=== PATIENT | female | born 1955 | race Caucasian/White ===

== ENCOUNTER 2022-08-04 13:52 | Outpatient (CLI) | payer MEDICARE, SELFPAY ==
--- NOTE | 2022-08-04 14:00 | CRLHL7_ITS ---
For Patients: As a result of the Century Cures Act, medical imaging exams and procedure reports are released immediately into your electronic medical record. You may view this report before your referring provider. If you have questions, please contact your health care provider. BILATERAL SCREENING MAMMOGRAM WITH COMPUTER-AIDED DETECTION AND TOMOSYNTHESIS TECHNIQUE: CC and MLO views were obtained. These mammographic images have been obtained using full-field digital technique. These mammographic images were interpreted with the benefit of computer-aided detection. Breast Tomosynthesis was used in this interpretation. COMPARISON FILM: 05/25/21, 05/22/20, 05/13/19. FINDINGS: The breasts are heterogeneously dense, which may obscure small masses IMPRESSION: There is no radiographic evidence for malignancy. ASSESSMENT: BI-RADS Category 1: Negative RECOMMENDATION: Routine screening mammogram in 1 year. A lay language report of this examination will be provided to the patient. Naeem Loomis M.D. Diagnostic Radiologist [email or web address] DORIAN/Dictated by: Naeem Loomis MD @ 08/05/2022 8:37:00 AM (Electronically Signed)
== END 2022-08-04 13:53 | disposition home or self-care (01) ==
LOC: MAMMO 13:52
PROVIDERS: PCP Internal Medicine; Visit Provider Internal Medicine
DX: Z12.31 Encounter for screening mammogram for malignant neoplasm of breast (principal); R92.2 Inconclusive mammogram
CPT/HCPCS: 77063; 77067

== ENCOUNTER 2023-02-02 08:15 | Outpatient (RCR) | payer MEDICARE, SELFPAY | END 2023-03-20 11:43 | disposition home or self-care (01) | PROVIDERS: PCP Internal Medicine; Visit Provider Physician Assistant | DX: H81.391 Other peripheral vertigo, right ear (principal); H90.3 Sensorineural hearing loss, bilateral; M54.2 Cervicalgia; Z51.89 Encounter for other specified aftercare | CPT/HCPCS: 97110; 97140; 97162 ==

== ENCOUNTER 2023-06-05 10:00 | Outpatient (RCR) | payer MEDICARE, SELFPAY ==
--- NOTE | 2023-04-13 12:48 | PT.OPEX ---
PT [facility] [place] [facility] PT [facility] Eval Start: 04/12/23 16:45 Freq: Status: Active Protocol: Document 04/12/23 16:45 NENA (Rec: 04/12/23 16:46 NENA [id number]) E-signed By Ravi Warner DPT, MS Physical Therapy Outpatient Evaluation Insurance Information Recert Due Date 07/11/23 Insurance Name Medicare B,Blue Cross/Blue Shield Medical Diagnosis Dizziness and giddiness Treating Diagnosis R BPPV, imbalance, sensory disorganization Subjective Subjective Patient presents to PT with c/ o acute reoccurrence of positional vertigo of insidious origin ~2-3 weeks ago upon waking. Describes sxs as the room spinning with rolling to R, looking up and down, and supine to sit Agnes reports having an episode of vertigo about 2 weeks ago. She has had vertigo many times, starting about 10-12 years ago . The first time it happened she thought she was having a stroke. This episode has been mild compared to that. Meclizine has helped. Symptoms caused by any quick/sudden head movements but especially with fwd bending. PT in January was helpful resulting in resolution of sxs until this month. 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 Assessment Assessment/Impression Testing revealed signs and symptoms consistent with R posterior canalithiasis BPPV. Following cannalith repositioning maneuver x 2 she presented as resolved with re -testing. Sensory disorganization with balance testing consistent with peripheral vestibular dysfunction. All other neurological testing normal. She is a mild falls risk based on her score on the 4-item Dynamic Gait Index testing. Recommended pt avoid sustained flex or ext head positions over the next 48 hours. She will benefit from continued skilled PT intervention to address these limitations. Primary Functional Limitations R, lying on R side, looking up , fwd bending, supine<>sit. Plan of Care Rehabilitation Potential Excellent Physical Therapy Goals Therapy goals to be completed in 10 weeks: 1. Patient will display resolution of R posterior canalithiasis BPPV symptoms for >5 consecutive days to improve safety with household cleaning activities. 2. Pt will displays improved balance on compliant surfaces with e/c to improve safety walking in the dark. 3. Pt will report >75% improvement on DHI questionnaire to improve tolerance to daily activities. 4. Patient will display improved 4-item DGI testing > /12 to decrease falls risk with dynamic gait tasks. Coordination/Communication With Referral Source Treatment Plan/Direct Interventions Canalith Repositioning, Neuromuscular Re-ed,Self-Care/ Home Management Frequency/Duration 1x per week for as needed for at least 6-10 visits. Patient Will Be Discharged From Therapy Completion of LTG(s),Skills Plateau,Independent w/HEP, Independently Progressing Evaluation Billing Untimed Code Treatment Minutes 24 Complexity Moderate Certification Information Initial Certification Date 04/12/23 Ending Certification Date 07/11/23 Provider Signature Shows Agreement With POC & Medical Necessity Physician Signature & Date Requested Please Sign/Date Here Physician Comment/Change : Physician NPI Number #
== END 2023-10-03 23:59 | disposition home or self-care (01) ==
PROVIDERS: PCP Internal Medicine; Visit Provider Nurse Practitioner Family
DX: R42 Dizziness and giddiness (principal); Z51.89 Encounter for other specified aftercare
CPT/HCPCS: 95992; 97162; 97535

== ENCOUNTER 2023-08-02 09:55 | Outpatient (CLI) | payer MEDICARE, SELFPAY ==
--- NOTE | 2023-08-02 10:15 | MR_ITS ---
[facility] [address] [facility] [address] Phone:?[phone] Fax:?[phone] Referring Physician Information: Robin Todd M.D. [address] [facility] [address] Phone:?[phone] Fax:?[phone] Patient:Margareth Nava D.O.B:?1955 Sex:?Female Phone:?[phone] [facility] MRN:?[id number] Exam Date:?08/02/2023 EXAM: MRI of the LEFT KNEE, without contrast CLINICAL INFORMATION: Female, 67 years old, with left knee pain. INDICATION: Evaluate for meniscal tear or osteoarthritis. PRIOR SURGERY: None reported. PLAIN FILMS: Knee radiographs dated 07/20/2023. COMPARISONS: No prior MRIs available. TECHNICAL INFORMATION: Using a 1.5T MR scanner and a localizing surface coil: sagittals: PD, PDFS coronals: PD, STIR axials: PD, T2FS SEDATION: None CONTRAST: None FINDINGS: Knee joint: Effusion: Large left knee effusion, with synovitis. Popliteal cyst: None. Loose bodies: None. Subcutaneous and extra-articular soft tissues: Moderate anterior subcutaneous soft tissue swelling extending from the patella to the tibial tubercle. Ligaments: ACL: Full-thickness disruption of the ACL (sagittal PDFS series 6 images 16 & 17). PCL: Intact PCL, without acute or chronic injury. MCL: Abnormal signal and high-grade tearing is present within the distal fibers of the superficial MCL (axial T2FS series 4 images 30-35). This results in a redundant appearance of the ligament more proximally. There is also abnormal signal and poorly defined tearing of the meniscofemoral component of the deep MCL. LCL: Intact LCL, without injury. Posterolateral corner: Mild popliteus tendinopathy, without tear. Biceps femoris, iliotibial band, popliteofibular ligament and lateral gastrocnemius are intact. Posteromedial corner: No posteromedial corner soft tissue injury. Semimembranosus, pes anserine tendons and posterior oblique ligament are without injury, tendinopathy or bursitis. Extensor mechanism: Patellar tendon: Intact, without tendinopathy. Quadriceps tendon: Intact, without tendinopathy. Retinacula: Medial and lateral retinacula are intact. Fat pads: Mild edema-like signal is present throughout the knee fat pads, in keeping with synovitis. Medial compartment: Medial meniscus: Abnormal intrasubstance signal and irregularity is present throughout the posterior meniscocapsular junction, without discrete tear (sagittal PDFS series 6 images 813). There is also apical free edge and undersurface fraying/subtle tearing at the posterior horn/body junction of the medial meniscus measuring 1.4 cm (sagittal PD series 5 images 9-12). Meniscal extrusion measures 3 mm. No parameniscal cyst. Medial femoral condyle: No chondromalacia or osteochondral abnormality. Medial tibial plateau: No chondromalacia or osteochondral abnormality. Lateral compartment: Lateral meniscus: Abnormal intrasubstance signal and poorly defined apical free edge and superior surface tearing is present throughout the anterior horn and root of the lateral meniscus measuring 2.2 cm (sagittal PDFS series 6 images 18- 24). Lateral femoral condyle & tibial plateau: Mild signal heterogeneity, surface irregularity, and thinning of the articular cartilage without full-thickness chondral loss or reactive osseous changes. 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 Trochlea: Broad-based grade III chondromalacia of the medial facet and central sulcus, with mild-moderate marginal osteophytosis. Proximal tibiofibular joint: Unremarkable, without evidence of ligament sprain injury, joint effusion or adjacent marrow edema. Bones: Approximately 6 x 14 mm area of poorly defined subchondral fracturing involving the posterior lateral tibial plateau, with significant surrounding bone marrow edema. IMPRESSION: 1. Full-thickness disruption of the ACL with a nondisplaced subchondral fracture of the posterior lateral tibial plateau measuring 6 x 14 mm. 2. Marked sprain of the MCL with high-grade tearing of the superficial MCL, distally as well as poorly defined tearing of the meniscofemoral component of the deep MCL. 3. Apical free edge and undersurface fraying/subtle tearing at the posterior horn/body junction of the medial meniscus over a length of 1.4 cm, with 3 mm of meniscal extrusion and a superimposed posterior meniscocapsular junction sprain. 4. Abnormal signal and poorly defined apical free edge and superior surface tearing of the lateral meniscal anterior horn and root measuring 2.2 cm. 5. 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 6. Large knee joint effusion with moderate anterior soft tissue swelling. No popliteal (Michaud's) cyst. 7. No significant osteochondral abnormality of the medial or lateral compartment. 8. No PCL or LCL sprain/tear. BC Electronically signed on 08/02/2023 3:27:00 PM by Celso Evangelista M.D.
== END 2023-08-02 09:56 | disposition home or self-care (01) ==
LOC: MRI 09:59
PROVIDERS: PCP Internal Medicine; Visit Provider Orthopaedic Surgery Sports Medicine
DX: M25.562 Pain in left knee (principal); S82.145A Nondisplaced bicondylar fracture of left tibia, initial encounter for closed fracture; S83.412A Sprain of medial collateral ligament of left knee, initial encounter; S83.282A Other tear of lateral meniscus, current injury, left knee, initial encounter; S83.242A Other tear of medial meniscus, current injury, left knee, initial encounter; M17.12 Unilateral primary osteoarthritis, left knee; M25.462 Effusion, left knee
CPT/HCPCS: 73721

== ENCOUNTER 2023-08-08 09:56 | Outpatient (CLI) | payer MEDICARE, SELFPAY ==
--- NOTE | 2023-08-08 10:15 | CRLHL7_ITS ---
For Patients: As a result of the Century Cures Act, medical imaging exams and procedure reports are released immediately into your electronic medical record. You may view this report before your referring provider. If you have questions, please contact your health care provider. BILATERAL SCREENING MAMMOGRAM WITH COMPUTER-AIDED DETECTION AND TOMOSYNTHESIS TECHNIQUE: CC and MLO views were obtained. These mammographic images have been obtained using full-field digital technique. These mammographic images were interpreted with the benefit of computer-aided detection. Breast Tomosynthesis was used in this interpretation. COMPARISON FILM: 08/04/22, 05/25/21, 05/22/20. FINDINGS: The breasts are heterogeneously dense, which may obscure small masses IMPRESSION: There is no radiographic evidence for malignancy. ASSESSMENT: BI-RADS Category 1: Negative RECOMMENDATION: Routine screening mammogram in 1 year. A lay language report of this examination will be provided to the patient. Naeem Loomis M.D. Diagnostic Radiologist [email or web address] DORIAN/Dictated by: Naeem Loomis MD @ 08/08/2023 11:13:00 AM (Electronically Signed)
== END 2023-08-08 09:57 | disposition home or self-care (01) ==
LOC: MAMMO 09:57
PROVIDERS: PCP Internal Medicine; Visit Provider Internal Medicine
DX: Z12.31 Encounter for screening mammogram for malignant neoplasm of breast (principal); R92.2 Inconclusive mammogram
CPT/HCPCS: 77063; 77067

== ENCOUNTER 2023-08-31 13:00 | Outpatient (RCR) | payer MEDICARE, SELFPAY ==
--- NOTE | 2023-08-23 15:44 | PT.OPEX ---
PT [place] [facility] Eval PT [facility] Outpatient Eval Start: 08/23/23 09:09 Freq: Status: Active Protocol: Document 08/23/23 09:13 KLV (Rec: 08/23/23 15:44 KLV [id number]) E-signed By Yaritza Cardona PT Physical Therapy Outpatient Evaluation Insurance Information Recert Due Date 11/17/23 Insurance Name Medicare B Medical Diagnosis Left knee pain Treating Diagnosis Left knee pain, limited knee ROM, gross LE weakness Referring MD Todd Subjective Subjective Agnes reports to PT with primary complaint of mild left knee pain and instability following an incident on . She was stepping backward when she heard and felt a pop and her leg buckled. She felt fairly normal after that however the next day her knee was somewhat swollen and she felt somewhat unstable. Now she is getting mild pain (0.5/ 10) with bending her knee all the way back and has to be careful when walking as her knee feels unstable with sideways and pivoting motions. Goals are to strengthen her knee and improve stability/ROM . MRI results indicated below. PMH: right LUZ, OA MRI of the left knee dated from [facility], was ordered and reviewed by me, was corroborated with the radiology report, and shows multiple findings as follows: Full-thickness disruption ACL with nondisplaced subchondral fracture posterior lateral tibial plateau. The edema/ fracture is acute for sure. The ACL as on the unknown chronicity. Gen sprain of the MCL specially with high-grade tearing of the superficial component more proximally. Undersurface fraying/subtle tearing posterior horn mid body junction medial meniscus over 1.4 cm length with 3 mm of extrusion. Poorly defined apical free edge in superior surface tearing lateral meniscus anterior horn and anterior root measuring 2.2 cm in length. 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 Large knee joint effusion with moderate anterior soft tissue swelling. No PCL or LCL/posterolateral corner sprain. Pain Comments 0.5/10 worst Date of Last Physician Visit 08/08/23 Current Work Status Retired Occupation [employer]. 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 The edema/ fracture is acute for sure. The ACL as on the unknown chronicity. -Gen sprain of the MCL specially with high-grade tearing of the superficial component more proximally. -Undersurface fraying/subtle tearing posterior horn mid body junction medial meniscus over 1.4 cm length with 3 mm of extrusion. -Poorly defined apical free edge in superior surface tearing lateral meniscus anterior horn and anterior root measuring 2.2 cm in length. 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 -Large knee joint effusion with moderate anterior soft tissue swelling. -No PCL or LCL/posterolateral corner sprain. Functional Test Performed & Score LEFS: 63/80 Assessment Assessment/Impression Patient is an 86 year old female presenting to physical therapy for evaluation and treatment of left knee pain however mild at this time despite multiple pathologies noted above. Patient presents with slight limitation with end range knee flexion, quad and proximal hip weakness. These impairments are limiting the patients ability to walk, squat and negotiate steps ( into machinery) without feeling instability. Patient appears motivated to participate in PT and presents with good prognosis to improve mobility, strength, proprioception and return to functional activities with skilled physical therapy intervention. 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 over 2 weeks period in order to demonstrate functional improvement Treatment Plan/Direct Interventions Gait Training,Ice/Cold/ Vasopneumatic,Joint Mobilization,Manual Therapy, Neuromuscular Re-ed,Self-Care/ Home Management,Therapeutic Activities,Therapeutic Exercises Frequency/Duration 1x/wk for 4 weeks with additional 4 sessions prn based on progress Patient Will Be Discharged From Therapy Completion of LTG(s), Independent w/HEP, Independently Progressing Evaluation Billing Untimed Code Treatment Minutes 25 Complexity Low Certification Information Initial Certification Date 08/23/23 Ending Certification Date 11/17/23 Provider Signature Shows Agreement With POC & Medical Necessity Physician Signature & Date Requested Please Sign/Date Here Physician Comment/Change : Physician NPI Number #
== END 2023-08-31 13:53 | disposition home or self-care (01) ==
PROVIDERS: PCP Internal Medicine; Visit Provider Orthopaedic Surgery Sports Medicine
DX: M17.12 Unilateral primary osteoarthritis, left knee (principal); S83.512A Sprain of anterior cruciate ligament of left knee, initial encounter; M25.562 Pain in left knee; S83.242A Other tear of medial meniscus, current injury, left knee, initial encounter; S83.282A Other tear of lateral meniscus, current injury, left knee, initial encounter; R53.1 Weakness; Z74.09 Other reduced mobility; Z51.89 Encounter for other specified aftercare
CPT/HCPCS: 97110; 97161

== ENCOUNTER 2024-08-22 09:53 | Outpatient (CLI) | payer MEDICARE, SELFPAY ==
--- OUTSIDE RECORDS SUMMARY | 2024-08-22 09:56 | XMS_ITS | Clinical Summary ---
Author Organization [facility] Address [place], [place] [address] Care Team Providers Care Director Channel Name Role Phone Brenda Vila MD Primary Care Provider [phone] Allergies No known active allergies Medications Medication Sig Dispensed Refills Start Date End Date Status MULTIVITAMIN ORAL daily 0 Active calcium carb/D3/magnesium/zinc (CALCIUM CARB-D3-MAG [id number] ORAL) 1 Tablet. 07/07/2022 Active Active Problems Problem Noted Date Diagnosed Date Pain in joint, site unspecified 02/06/2007 Unspecified asthma(493.90) 02/06/2007 Other acne 02/06/2007 Immunizations Name Administration Dates Next Due COVID-19 vaccine (Moderna 100mcg/0.5mL) NAYELY SCHWARTZ 02/23/2021,01/26/2021 Td (Age >=7 Years) 07/27/2004 Family History Medical History Relation Name Comments Stroke Father Cancer Maternal Grandmother Arthritis Mother Hypertension Mother Arthritis Paternal Grandmother Relation Name Status Comments Father Maternal Grandmother Mother Paternal Grandmother Social History Tobacco Use Types Packs/Day Years Used Date Smoking Tobacco: Never Smokeless Tobacco: Never Tobacco Cessation:Counseling Given: Yes Alcohol Use Standard Drinks/Week Comments Yes 1.7 (1 standard drink = 0.6 oz p ure alcohol) moderatly Social Connections Answer Date Recorded Frequency of Communication with Friends and Fami ly Not on file 01/18/2023 Sex and Gender Information Value Date Recorded Sex Assigned at Not on file Gender Identity Not on file Sexual Orientation Not on file Obstetrics History Last Filed Vital Signs Vital Sign Reading Time Taken Comments Blood Pressure 134/66 01/18/2023 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 Pulse 68 01/18/2023 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 Temperature 37.4 ??C (99.3 ??F) 02/08/2008 1:47 PM CD T Respiratory Rate 16 12/12/2017 3:58 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 Oxygen Saturation 99% 12/26/2018 12:10 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 Inhaled Oxygen Concentration - - Weight 86.6 kg (191 lb) 12/26/2018 12:10 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 Height 160.7 cm (5' 3.25) 12/12/2017 3:58 PM CS T Body Mass Index 33.57 12/12/2017 3:58 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 Plan of Treatment Health Maintenance Due Date Last Done Comments Tdap 1965 Depression screening for age 12+ 1966 Hepatitis C screening for ag e 18-79 1972 Mammogram for age 45-75 1999 Zoster (shingles) series for age 50+ (1 of 2) 2004 Lipids for age 45-75 02/06/2012 02/05/2007, 12/23/19 03 Tetanus booster 07/27/2014 07/27/2004 Colonoscopy through age 75 05/11/2017 05/11/2007 BMI (ht and wt on same day) for age 18+ 12/12/2018 12/12/2017 DEXA/DXA scan for age 65+ 2019 Medicare Wellness for age 65+ 2019 Pneumococcal series for age 65+ (1 of 1 - PCV) 2019 COVID-19 vaccine series ( season) 2024 08/15/2022, 03/04/2022, 09/23/2021, Additional history exists Influenza for age 65+ 07/21/2024 Procedures Procedure Name Priority Date/Time Associated Diagnosis Comments CHOLESTEROL,TOTAL Timed 02/05/2007 9:4 8 AM CDT from Last 3 Months or Most Recently Relevant to Health Maintenance Results * CHOLESTEROL,TOTAL (02/05/2007 9:48 AM CDT) CHOLESTEROL,TO ADRIAN 197 110 - 199 mg/dL [facility] 02/05/2007 9:48 AM CDT 02/05/2007 9:48 AM CDT Moshe Winn MD CHEMISTRY [facility] [address] [place], [place] [id number] from Last 3 Months or Most Recently Relevant to Health Maintenance Care Teams Director Channel Relationship Specialty Start Date End Date Brenda Vila MD [address] [place] [address] PCP - General Internal Medicine 09/02/16
--- NOTE | 2024-08-22 10:15 | MR_ITS ---
[address] [address] Phone:?[phone] Fax:?[phone] Referring Physician Information: Elmo Posey M.D. [address] [place] [id number] Phone:?[phone] Fax:?[phone] Patient:Margareth Nava D.O.B:?1955 Sex:?Female Phone:?[phone] [facility] MRN:?[id number] Exam Date:?08/22/2024 EXAM: MRI of the RIGHT KNEE, without contrast CLINICAL HISTORY: Ongoing right knee pain. Unspecified tear of unspecified meniscus. COMPARISONS: Plain radiographs 08/12/2024. TECHNICAL: MR sequences of the right knee: sagittals: PD, PDFS coronals: PD, STIR axials: PD, T2 FS CONTRAST: None SEDATION: None FINDINGS: Bones: No fracture, bone marrow contusion, or other suspicious bone marrow signal abnormality. 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 Retinacula: The medial and lateral retinacula are intact. Fat pads: The infrapatellar, quadriceps, and prefemoral fat pads are unremarkable. Knee joint: Effusion: Moderate right knee joint effusion. Popliteal cyst: None. Intra-articular bodies: None. Posteromedial corner: The semimembranosus and pes anserine tendons are intact. Medial compartment: Medial meniscus: Free edge blunting and attenuation of the body of the medial meniscus and attenuation of the posterior horn of the medial meniscus likely reflect ill-defined attritional partial tearing. Marked medial meniscal extrusion currently. Medial meniscal pathology has moderately progressed compared to previous MRI 04/27/2020. Cartilage: Grade III chondromalacia over the weight-bearing portion of the medial femoral condyle does not appear progressed compared to previous MRI 04/27/2020. No subchondral cystic change/subchondral edema-like signal. Lateral compartment: Lateral meniscus: Generalized fraying/mucoid degeneration of the anterior root and anterior horn of the lateral meniscus and free edge fraying of the posterior horn of the lateral meniscus, similar compared to previous MRI 04/27/2020. Cartilage: Grade III chondromalacia over the weight-bearing portion of the lateral femoral condyle and grade II chondromalacia over the central portion of the lateral tibial plateau, not progressed compared to previous MRI 04/27/2020. No subchondral cystic change/subchondral edema-like signal. Ligaments: Anterior cruciate ligament: Intact. Posterior cruciate ligament: Intact. Medial collateral ligament: Mild thickening and ill-definition of the proximal portion of the medial collateral ligament are findings consistent with sequelae of chronic sprain injury. No acute ligamentous injury. Posterior oblique ligament: Intact. Fibular collateral ligament: Intact. Posterolateral corner: The distal biceps femoris tendon, iliotibial band, popliteus tendon, popliteus muscle, popliteofibular ligament, and arcuate ligament are intact. Extensor mechanism: Patellar tendon: Intact. Quadriceps tendon: Intact. IMPRESSION: 1. 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 2. Grade III chondromalacia over the weight-bearing portion of the medial femoral condyle does not appear progressed compared to previous MRI 04/27/2020. No subchondral cystic change/subchondral edema-like signal. 3. Grade III chondromalacia over the weight-bearing portion of the lateral femoral condyle and grade II chondromalacia over the central portion of the lateral tibial plateau, not progressed compared to previous MRI 04/27/2020. No subchondral cystic change/subchondral edema-like signal. 4. Free edge blunting and attenuation of the body of the medial meniscus and attenuation of the posterior horn of the medial meniscus likely reflect ill- defined attritional partial tearing. Marked medial meniscal extrusion currently. Medial meniscal pathology has moderately progressed compared to previous MRI 04/27/2020. 5. Generalized fraying/mucoid degeneration of the anterior root and anterior horn of the lateral meniscus and free edge fraying of the posterior horn of the lateral meniscus, similar compared to previous MRI 04/27/2020. 6. Mild thickening and ill-definition of the proximal portion of the medial collateral ligament are findings consistent with sequelae of chronic sprain injury. No acute ligamentous injury. 7. Moderate right knee joint effusion. RCB Electronically signed on 08/22/2024 2:11:00 PM by Saleem Walsh M.D.
== END 2024-08-22 09:54 | disposition home or self-care (01) ==
LOC: MRI 09:54
PROVIDERS: PCP Internal Medicine; Visit Provider Orthopaedic Surgery
DX: M25.561 Pain in right knee (principal); M94.261 Chondromalacia, right knee; M25.461 Effusion, right knee; S83.206A Unspecified tear of unspecified meniscus, current injury, right knee, initial encounter
CPT/HCPCS: 73721

== ENCOUNTER 2024-09-09 14:50 | Outpatient (CLI) | payer MEDICARE, SELFPAY ==
--- OUTSIDE RECORDS SUMMARY | 2024-09-09 14:53 | XMS_ITS | Clinical Summary ---
Author Organization [employer] [facility] Address [place], [place] [address] Care Team Providers Care Cloth Bin Packer Name Role Phone Brenda Vila MD Primary Care Provider [phone]- [phone] Allergies No known active allergies Medications Medication Sig Dispensed Refills Start Date End Date Status MULTIVITAMIN ORAL daily 0 Active calcium carb/D3/magnesium/zinc (CALCIUM CARB-D3-MAG [id number] ORAL) 1 Tablet. 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 Pulse 68 01/18/2023 1:29 PM AUTOMOBILE SALESMAN Temperature 37.4 ??C (99.3 ??F) 02/08/2008 1:47 PM CD T Respiratory Rate 16 12/12/2017 3:58 PM AUTOMOBILE SALESMAN Oxygen Saturation 99% 12/26/2018 12:10 PM AUTOMOBILE SALESMAN Inhaled Oxygen Concentration - - Weight 86.6 kg (191 lb) 12/26/2018 12:10 PM AUTOMOBILE SALESMAN Height 160.7 cm (5' 3.25) 12/12/2017 3:58 PM CS T Body Mass Index 33.57 12/12/2017 3:58 PM AUTOMOBILE SALESMAN Plan of Treatment Health Maintenance Due Date [...] CHOLESTEROL,TO ADRIAN 197 110 - 199 mg/dL [facility] 02/05/2007 9:48 AM CDT 02/05/2007 9:48 AM CDT Moshe Winn MD [facility] [address] [place], [place] [id number] from Last 3 Months or Most Recently Relevant to Health Maintenance Care Teams Cloth Bin Packer Relationship Specialty Start Date End Date Brenda Vila MD [address] [place] [address] PCP - General Internal Medicine 09/02/16
--- NOTE | 2024-09-09 15:00 | CRLHL7_ITS ---
For Patients: As a result of the Century Cures Act, medical imaging exams and procedure reports are released immediately into your electronic medical record. You may view this report before your referring provider. If you have questions, please contact your health care provider. BILATERAL SCREENING MAMMOGRAM WITH COMPUTER-AIDED DETECTION AND TOMOSYNTHESIS TECHNIQUE: CC and MLO views were obtained. These mammographic images have been obtained using full-field digital technique. These mammographic images were interpreted with the benefit of computer-aided detection. Breast Tomosynthesis was used in this interpretation. COMPARISON FILM: 08/08/23, 08/04/22, 05/25/21. FINDINGS: The breasts are heterogeneously dense, which may obscure small masses. IMPRESSION: There is no radiographic evidence for malignancy. ASSESSMENT: BI-RADS Category 2: Benign RECOMMENDATION: Routine screening mammogram in 1 year. A lay language report of this examination will be provided to the patient. Naeem Loomis M.D. Diagnostic Radiologist [email or web address] SP/Dictated by: Naeem Loomis MD @ 09/12/2024 11:43:00 AM (Electronically Signed)
== END 2024-09-09 14:51 | disposition home or self-care (01) ==
LOC: MAMMO 14:51
PROVIDERS: PCP Internal Medicine; Visit Provider Internal Medicine
DX: Z12.31 Encounter for screening mammogram for malignant neoplasm of breast (principal); R92.333 Mammographic heterogeneous density, bilateral breasts
CPT/HCPCS: 77063; 77067

== ENCOUNTER 2024-09-24 09:54 | Outpatient (CLI) | payer MEDICARE, SELFPAY ==
--- OUTSIDE RECORDS SUMMARY | 2024-09-24 10:01 | XMS_ITS | Clinical Summary ---
Author Organization [employer] [facility] Address [place], [place] [address] Care Team Providers Care Advertising Campaign Manager Name Role Phone Brenda Vila MD Primary Care Provider +1- [phone] Allergies No known active allergies Medications Medication Sig Dispensed Refills Start Date End Date Status MULTIVITAMIN ORAL daily 0 Active calcium carb/D3/magnesium/zinc (CALCIUM CARB-D3-MAG [id number] ORAL) 1 Tablet. 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 Pulse 68 01/18/2023 1:29 PM MOVIE 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 Temperature 37.4 ??C (99.3 ??F) 02/08/2008 1:47 PM CD T Respiratory Rate 16 12/12/2017 3:58 PM MOVIE 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 Oxygen Saturation 99% 12/26/2018 12:10 PM MOVIE 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 Inhaled Oxygen Concentration - - Weight 86.6 kg (191 lb) 12/26/2018 12:10 PM MOVIE 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 Height 160.7 cm (5' 3.25) 12/12/2017 3:58 PM CS T Body Mass Index 33.57 12/12/2017 3:58 PM MOVIE 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 Plan of Treatment Health Maintenance [...] CHOLESTEROL,TO ADRIAN 197 110 - 199 mg/dL [facility] 02/05/2007 9:48 AM CDT 02/05/2007 9:48 AM CDT Moshe Winn MD CHEMISTRY [facility] [address] [place], [place] [id number] from Last 3 Months or Most Recently Relevant to Health Maintenance Care Teams Advertising Campaign Manager Relationship Specialty Start Date End Date Brenda Vila MD [address] [place] [address] PCP - General Internal Medicine 09/02/16
== END 2024-09-24 09:55 | disposition home or self-care (01) ==
PROVIDERS: PCP Internal Medicine; Visit Provider Internal Medicine
DX: M25.50 Pain in unspecified joint (principal); M17.12 Unilateral primary osteoarthritis, left knee; Z13.29 Encounter for screening for other suspected endocrine disorder
CPT/HCPCS: 80053; 82306; 82550; 84443; 86038; 86140; 86200; 86431; 86618

== ENCOUNTER 2024-10-29 10:30 | Outpatient (RCR) | payer MEDICARE, SELFPAY ==
--- NOTE | 2024-09-24 14:55 | PT.OPEX ---
PT [facility] Eval PT [facility] Outpatient Eval Start: 09/24/24 09:55 Freq: Status: Active Protocol: Document 09/24/24 09:57 NLR (Rec: 09/24/24 14:51 NLR [id number]) E-signed By Agnes Hartmann DPT Physical Therapy Outpatient Evaluation Insurance Information Recert Due Date 12/23/24 Insurance Name [employer] Medical Diagnosis M17.11 Unilateral primary arthritis right knee M70.71 Other bursitis hip, right hip Treating Diagnosis M25.561 Right knee pain M25.551 Right hip pain Imaging Report Information MRI 08/22/24: 1. Diffuse grade IV chondromalacia R knee 2. Free edge blunting and attenuation of the body of the medial meniscus and attenuation of the posterior horn of the medial meniscus 3. Generalized fraying/mucoid degeneration of the anterior root and anterior horn of the lateral meniscus 4. Mild thickening and ill- definition of the proximal portion of the medial collateral ligament 5. Moderate right knee joint effusion Referring MD Elmo Posey MD (Primary is Julito RICKS) Subjective Preferred Name AGNES Subjective Patient reports for PT evaluation with a flare of her bad knee (she was kicked by a horse at tibial tuberosity as a teenager) that started insidiously this summer. The knee started first and the hip followed, and now recently the hip has improved. Notably she has also had a flare of diffuse body joint pain for which she is being worked up for by her primary care provider. She notes the right knee has always been sensitive to cold and she considers it to be the bad knee. Pain Comments Knee 1-2/10 aching (sometimes flares to 6-7/10, usually daily when using it). Knee stiffens up significantly at night. It also feels stiffness during the day ( since her hip replacement [address] Posey). Gastroc will feel tender and sometimes cramps. Hip 2-3/10 [address] going up stairs. Hip pain can be sharp and sometimes dull and sore to touch. There is no radiation into leg. 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 Precautions Treatment Precautions/Contraindications B shoulders, B elbows, B wrists, B hips and B knees have been hurting since mid to late April which started as a very tight/stiffness in bilateral hamstrings into glutes. She is under workup by her primary care provider. Weight Bearing Status Full Weight Bearing Therapy Limitations/Systems Review Not Limited Objective Other/Pertinent Objective HAND DOM: LEFT ROM: WFL STRENGTH: Mild R>L thigh weakness at quad, glute and hamstring 3+/5 PALPATION: Mild tenderness at piriformis on the R, R IT band insertion on tibia POSTURE: FHON, R shoulder retracted, trunk shifted left and counter rotated to the right over pelvis, R high PSIS , B pronation, mild R knee valgus EDEMA: Mild R knee IT band insertion SPECIAL TESTS: B + Julian, B + Espinoza, B + Pat (R 11, L 7), R>L + Patellar Grind test, R + FADDIR, R + GUILLERMO FLEXIBILITY: Hypoflexibility noted R>L Quad, IT band, piriformis, hamstring, HC FOOTWEAR: [employer] slides, NB athletic shoes. Assessment Assessment/Impression Agnes is a very pleasant 68 year old female who presents with several month history of R knee and hip pain consistant with patellofemoral pain in the setting of R IT band syndrome, general R>L LE hypoflexibility and R high pelvic obliquity. Notably she has been having B joint pain in a number of joints that she is currently being worked up for as she has a family history of RA. She would benefit from skilled PT to achieve goals as stated. Primary Functional Limitations Difficulty putting on right sock and putting right leg into pants (anything that involves lifting and bending at the hip) and putting on chore boots. Pain at night and difficulty sleeping (the only position she finds comfortable is laying on her back with legs extended). Pain with laying on either side (she is a side sleeper). Plan of Care Rehabilitation Potential Good Rehabilitation Potential Comments Patient is otherwise healthy and motivated to improve in order to return to prior level of function. Physical Therapy Goals 1. Patient will be independent with home exercise program as instructed, modified and progressed by physical therapist in order to be independently and actively participating in their rehabilitation and return to prior level of function. Goal to be achieved by 12/23/2024. 2. Patient will demonstrate improvement in right hip ROM so that patient will be able to safey and independently dustin/doff shoes and socks with no pain increase greater than 2/10. Goal to be achieved by 12/23/2024. 3. Patient will demonstrate improved tolerance for sleeping in a bed in desired sleeping position for 6 hours without significant increase in pain greater than 2/10 to allow patient to be able to achieve adequate sleep for improved health and well-being . Goal to be achieved by 01/2025. Coordination/Communication With Referral Source Treatment Plan/Direct Interventions Dry Needling,Gait Training, Manual Therapy,Neuromuscular Re-ed,Self-Care/Home Management,Therapeutic Activities,Therapeutic Exercises Frequency/Duration 1X/week for 8-10 weeks Patient Will Be Discharged From Therapy Completion of LTG(s),Skills Plateau,Independent w/HEP, Independently Progressing Discharge Plan Comments HEP Evaluation Billing Untimed Code Treatment Minutes 30 PT Eval No Charge No Complexity Moderate Certification Information Initial Certification Date 09/24/24 Ending Certification Date 12/23/24 Provider Signature Required Yes Provider Signature Shows Agreement With POC & Medical Necessity Physician NPI Number Write NPI# Here Physician Comment/Change : Physician Signature & Date Requested Please Sign/Date Here
== END 2024-12-02 10:46 | disposition home or self-care (01) ==
PROVIDERS: PCP Internal Medicine; Visit Provider Orthopaedic Surgery
DX: M17.11 Unilateral primary osteoarthritis, right knee (principal); M70.71 Other bursitis of hip, right hip; Z51.89 Encounter for other specified aftercare
CPT/HCPCS: 97110; 97140; 97162

== ENCOUNTER 2025-07-14 08:10 | Outpatient (CLI) | payer MEDICARE, SELFPAY | END 2025-07-14 08:11 | disposition home or self-care (01) | LOC: NFLDREF 08:11 | PROVIDERS: PCP Internal Medicine; Visit Provider Internal Medicine | DX: Z00.00 Encounter for general adult medical examination without abnormal findings (principal); Z79.1 Long term (current) use of non-steroidal anti-inflammatories (NSAID) | CPT/HCPCS: 80048 ==

== ENCOUNTER 2025-09-11 09:38 | Outpatient (CLI) | payer MEDICARE, SELFPAY ==
--- NOTE | 2025-09-11 09:45 | CRLHL7_ITS ---
For Patients: As a result of the Cures Act, medical imaging exams and procedure reports are released immediately into your electronic medical record. You may view this report before your referring provider. If you have questions, please contact your health care provider. COMPARISON: 09/09/2024, 08/08/2023, 08/04/2022 TECHNIQUE: Digital mammogram in CC and MLO projections including computer-aided detection (CAD) and tomosynthesis. BREAST COMPOSITION: The breasts are heterogeneously dense, which may obscure small masses. FINDINGS: No suspicious findings. ASSESSMENT: BI-RADS 2 Benign RECOMMENDATION: Annual screening mammogram. A lay language report of this examination will be provided to the patient. Dictated by: Naeem Loomis MD @ 09/11/2025 11:38:06 (Electronically Signed)
== END 2025-09-11 09:39 | disposition home or self-care (01) ==
LOC: MAMMO 09:39
PROVIDERS: PCP Internal Medicine; Visit Provider Internal Medicine
DX: Z12.31 Encounter for screening mammogram for malignant neoplasm of breast (principal); R92.333 Mammographic heterogeneous density, bilateral breasts
CPT/HCPCS: 77063; 77067